=== PATIENT | female | born 1995 | race Caucasian/White ===

== ENCOUNTER 2018-05-02 08:14 | Day surgery (SDC) | payer OTHER ==
[2018-04-29 09:19] LABS: Absolute Lymphocytes (CBC) 2.2 K/uL (0.7-4.9); Absolute Monocytes 0.6 K/uL (0.1-1.3); Absolute Neutrophil 3.5 K/uL (1.8-8.0); Basophils % 0.7 % (0-1.3); Eosinophils % 1.3 % (0-4.4); Hematocrit 39.7 % (36.0-45.0); Lymphocytes % 33.9 % (15.3-44.8); MCH 29.4 pg (27.0-35.0); MCV 85.4 fL (80-100); MPV 10.1 fL (7.6-11.3); Monocytes % 9.8 % (3.3-12.3); RBC Red Blood Cell Count 4.65 M/uL (3.86-4.86)
[2018-04-29 16:06] LABS: BUN Blood Urea Nitrogen 12 mg/dL (7-18); Bicarbonate 27 mmol/L (21-32); Glucose Level 80 mg/dL (74-106); Potassium 3.8 mmol/L (3.5-5.1); Sodium Level 142 mmol/L (136-145)
[2018-05-02] MEDS ORDERED: Ringers Lactate 1,000 ML IV ONE (08:41)
[2018-05-02] MEDS ORDERED: CIPROFLOXACIN 400mg IV 400 MG/200 ML BAG IV ONE (08:41)
[2018-05-02] MEDS ORDERED: MIDAZOLAM HCL 2 MG/2 ML INJ ONE (08:45)
[2018-05-02] MEDS ORDERED: PROPOFOL 200 MG/20 ML VIAL IV ONE (08:45)
[2018-05-02] MEDS ORDERED: FENTANYL CITR 100 MCG/2 ML ONE (08:45)
[2018-05-02] MEDS ORDERED: LIDOCAINE 1% MPF 5 ML VIAL ONE (08:45)
[2018-05-02 08:53] LABS: Specific Gravity >= 1.030 (1.005-1.030)
[2018-05-02] MEDS ORDERED: ONDANSETRON HCL 40 MG/20 ML VIAL ONE (09:44)
--- NOTE | 2018-05-02 10:14 | P.BOP ---
Preoperative diagnosis: Perianal ulcer/fissure Postoperative diagnosis: same Primary procedure: 1. EUA, 2. Anoscopy, 3. Rigid proctoscopy Secondary procedure: 4. fisurrectomy with excisional bx of perianal ulcer Estimated blood loss: <5cc Specimen: ulcer biopsy Findings: posterior perianal ulcer Anesthesia: General Complications: None Transferred to: Recovery Room Condition: Good
[2018-05-02] MEDS: MEPERIDINE HCL 25 MG/0.5 ML ONE ×2 (10:35→10:45)
[2018-05-02] MEDS: DIPHENHYDRAMINE 50 MG/ML VIAL ONE ×2 (10:38→10:47)
[2018-05-02] MEDS ORDERED: DEXAMETHASONE 4 MG/ML VIAL ONE (11:27)
[2018-05-02] MEDS ORDERED: ONDANSETRON 4 MG/2 ML VIAL ONE (12:18)
--- NOTE | 2018-05-11 14:36 | OP ---
Date of Procedure: 05/11/2018 Surgeon: Roberto Croft MD Preoperative Diagnosis: Perianal ulcer/fissure. Postoperative Diagnosis: Perianal ulcer/fissure. Procedure: Examination under anesthesia, anoscopy, rigid proctoscopy, fissurectomy with biopsy of pe rianal abscess. Finding: Posterior perianal fissures/ulcer. Anesthesia: General plus local. Indications: This is a case of a 23-year-old with a very tender perianal ulcer. The patient has bee n to the account consultant before. She has sitz baths, creams, ointments, suppositories change in b owel habits, change in social habits, and seems not to be able to pass over this and improve. She wa s referred to us by the account consultant. Benefits, alternatives, and risks explained of EUA, anos copy, proctoscopy, biopsy of the ulcer, fissurectomy were fully explained to the patient, which inclu de, but are not limited to infection, bleeding, damage to adjacent structures, anesthesia complicatio n, recurrence, [place], and even . She also understands risks of anal stricture and incontinence. S he signed a consent. Description Of Procedure: The patient was brought to the operating room and placed in the supine pos ition. Anesthesia was done without complication. The patient was placed in lateral position with pr oper protection. The perianal area was prepped and draped in sterile fashion. Local anesthesia was applied. Following anesthetic, we did a rectal examination followed by rigid proctoscopy. Advanced under direct visualization in the central lumen after insufflation without resistance up to about 15 cm. No fistulas, no tumor seen. Anoscope with a window on the side was placed in the anal canal to visualize the anal canal. We noticed small internal and external hemorrhoids, but this is a fissure on its own. To rule out cancer, I proceeded then to remove the fissure and send that ulceration as a biopsy. The area was irrigated and then we proceeded to approximate part of the anoderm with chromi c stitches. The patient tolerated the procedure well. Sponge count and instrument counts were corre ct. The patient was sent to recovery in stable condition. ALTON/BRUNO Voice ID: [id number] Report ID: [id number]
--- NOTE | 2018-05-11 14:42 | DS ---
Date of Discharge: 05/02/2018 Diagnosis: Perianal fissure. Procedure: Exam under anesthesia, anoscopy, rigid proctoscopy, fissurectomy. Disposition: Home. Activity: As tolerated. No heavy lifting. Follow Up: In my office in 1 week. Call for appointment [phone]. Sitz baths 4 times a day and aft er every bowel movement. Avoid constipation. ALTON/BRUNO Voice ID: [id number] Report ID: [id number]
== END 2018-05-02 13:10 | disposition home or self-care (01) ==
LOC: PRE 08:14
PROVIDERS: ATTEND Surgery
PROC: 0DJD8ZZ Inspection of Lower Intestinal Tract, Via Natural or Artificial Opening Endoscopic (ICD-10-PCS; 2018-05-02)
PROC: 0DBQ0ZZ Excision of Anus, Open Approach (ICD-10-PCS; principal; 2018-05-02 09:45)
DX: K61.0 Anal abscess (principal); Z88.0 Allergy status to penicillin; Z88.2 Allergy status to sulfonamides; Z82.49 Family history of ischemic heart disease and other diseases of the circulatory system
CPT/HCPCS: 36415; 80048; 81025; 85025; 88304; 88305; J0744; J2175; J2250; J2405; J3010